=== PATIENT | male | born 1985 | race Caucasian/White ===

== ENCOUNTER 2021-10-20 19:21 | Emergency (ER) | payer OTHER ==
[~2021-10-20] VITALS: Ht 188 cm; Wt 100.0 kg
[2021-10-20 21:00] VITALS: BP 125/83
[2021-10-20] MEDS ORDERED: IBUPROFEN 400MG TABLET PO ONE (21:00)
== END 2021-10-20 21:30 | disposition home or self-care (01) ==
LOC: ER 19:21
DX: R52 Pain, unspecified (principal)
CPT/HCPCS: 99283